=== PATIENT | female | born 1950 | race Caucasian/White ===

== ENCOUNTER → 2020-06-16 | Outpatient (CLI) | payer MEDICARE, BC ==
[~2020-06-16] MED LIST: ISOVUE-300 61% 50ML VIAL As Ordered ONE; LIDOCAINE 1% MDV 20ML VIAL As Ordered ONE; methylPREDNISolone SUSP 40MG/ML 1ML VIAL (DEPO MEDROL) As Ordered ONE
--- NOTE | 2020-06-17 06:52 | REP ---
INDICATION: PAIN IN RT ANKLE AND JOINTS OF RT FOOT. COMPARISON: None TECHNIQUE: The procedure was performed by VERÓNICA Cool, under the direct supervision of Dr. Hawk. The benefits and risks of the procedure were explained to the patient, and an informed consent was obtained. Directly prior to the start of the procedure, a formal time-out was completed in the procedure room. The right subtalar joint space was localized using fluoroscopic guidance. The skin was prepped and draped in a sterile fashion. Approximately 0.5 mL of 1% Lidocaine 10 mg/ml was used as a local anesthetic. Using fluoroscopic guidance the same needle used to inject lidocaine was then advanced into the right subtalar joint space. Approximately 1 mL of Isovue 300 was injected to verify placement. Three mL of a solution containing 2 mL 1% lidocaine 10 mg/ml and 1 mL Depo-Medrol 40 milligrams/milliliter was injected into the joint space. The needle was removed and hemostasis was achieved. FINDINGS: The patient tolerated the procedure well and there were no immediate complications. IMPRESSION: 1. Fluoroscopic guided intra-articular right subtalar joint injection. 0.3 minutes of fluoroscopy time was utilized for this procedure. Some fluoroscopic images are performed with last image hold technology. These images require no additional radiation. <Electronically signed by Kalee Cheema > 06/16/20 [id number] <Electronically signed by Jamshid Hawk > 06/17/20 [id number]
== END ==
LOC: M RADPRO 13:41
PROVIDERS: ATTEND Physician Assistant
DX: M25.571 Pain in right ankle and joints of right foot (principal)
CPT/HCPCS: 20605; 77002; J1030; Q9967